=== PATIENT | female | born 1990 | race African-American/Black ===

== ENCOUNTER 2020-12-02 15:16 | Emergency (ER) | payer SELFPAY ==
[~2020-12-02] VITALS: Ht 170.2 cm; Wt 80.7 kg
[2020-12-02 15:39] VITALS: BP_SYST 131
[2020-12-02] MEDS ORDERED: METR500T PO (17:38)
[2020-12-02 17:50] VITALS: BP_SYST 128
== END 2020-12-02 17:50 | disposition home or self-care (01) ==
LOC: SED 15:16
DX: N76.0 Acute vaginitis (principal)
CPT/HCPCS: 99283